=== PATIENT | male | born 1950 | race Caucasian/White ===

== ENCOUNTER → 2019-02-17 | Outpatient (REF) | payer MEDICARE, MEDICAID ==
[~2019-02-17] MED LIST: /LANS30GR; ALPR0.25; AMBI10TA; LIPI80TA; LYRI75CA; SENN15TA2; VENTAER; XANA0.25; ZOLO100T
== END ==
LOC: M LAB LCGH 15:10
PROVIDERS: ATTEND Surgery
DX: R13.10 Dysphagia, unspecified (principal)

== ENCOUNTER → 2022-09-01 | Outpatient (CLI) | payer MEDICARE, MEDICAID ==
[~2022-09-01] MED LIST changes: +ALBU8.5H INH; +ANOR1AER INH; +BUSP10TA79 PO; +DOCU100C16 PO; +FLUTISP; +IBAN150T6 PO; +OLAN1TAB16 PO; +PANT40TA29 PO; +SPIR1CAP INH; +XARE20TA PO; +ZOCO80TA PO
== END ==
LOC: M LABSMTC 10:12
PROVIDERS: ATTEND Anesthesiology
DX: Z01.812 Encounter for preprocedural laboratory examination (principal); Z20.822 Contact with and (suspected) exposure to COVID-19

== ENCOUNTER 2022-09-02 10:22 | Day surgery (SDC) | payer MEDICARE, MEDICAID ==
[~2022-09-02] VITALS: Ht 165.1 cm; Wt 70.8 kg
[~2022-09-02 10:22] MED LIST changes: +CEFUROXIME 1MG/0.1ML INTRACAMERAL INJ As Ordered ONE; +CYCLOPENTOLATE 1% OPHTH SOLN 2ML BTL OS SCH; +LIDOCAINE 1% 1ML PF SYRINGE (OR EYE CASES) As Ordered ONE; +OFLOXACIN 0.3 % (OCUFLOX) OPTH SOL 5ML OS SCH; +PHENYLEPHRINE 2.5% OPHTH SOL 2ML OS SCH; +PROPARACAINE 0.5% OPHTH SOL 15ML OS ONE; +TROPICAMIDE 1% OPHTH SOLN 15ML OS SCH
[2022-09-02] MEDS ORDERED: BSS IRR 500ML/OMIDRIA 4ML IRR BAG (OR ONLY) As Ordered ONE (10:28)
[2022-09-02] MEDS ORDERED: MIDAZOLAM INJ 2MG/2ML VIAL (J2250 PER 1MG) As Ordered ONE (11:53)
[2022-09-02] MEDS ORDERED: fentaNYL 100 MCG/2 ML INJECTION As Ordered ONE (11:53)
[2022-09-02 13:00] VITALS: BP 162/66
== END 2022-09-02 13:02 | disposition home or self-care (01) ==
LOC: M SDC 10:22
PROVIDERS: ATTEND Ophthalmology
DX: H25.12 Age-related nuclear cataract, left eye (principal); K21.9 Gastro-esophageal reflux disease without esophagitis; R51.9 Headache, unspecified; J45.909 Unspecified asthma, uncomplicated; Z79.02 Long term (current) use of antithrombotics/antiplatelets; Z79.899 Other long term (current) drug therapy; Z79.51 Long term (current) use of inhaled steroids; F41.9 Anxiety disorder, unspecified; F32.A Depression, unspecified; Z87.891 Personal history of nicotine dependence; J30.2 Other seasonal allergic rhinitis
CPT/HCPCS: 66984; J0697; J1097; J2250; J3010; V2632

== ENCOUNTER 2023-12-08 08:54 | Day surgery (SDC) | payer MEDICARE, MEDICAID ==
[~2023-12-08] VITALS: Ht 165.1 cm; Wt 67.1 kg
[~2023-12-08 08:54] MED LIST changes: +BUSP10TA PO; -CEFUROXIME 1MG/0.1ML INTRACAMERAL INJ As Ordered ONE; -CYCLOPENTOLATE 1% OPHTH SOLN 2ML BTL OS SCH; -LIDOCAINE 1% 1ML PF SYRINGE (OR EYE CASES) As Ordered ONE; -OFLOXACIN 0.3 % (OCUFLOX) OPTH SOL 5ML OS SCH; -PHENYLEPHRINE 2.5% OPHTH SOL 2ML OS SCH; -PROPARACAINE 0.5% OPHTH SOL 15ML OS ONE; +TAMS1CAP17 PO; -TROPICAMIDE 1% OPHTH SOLN 15ML OS SCH
[2023-12-08] MEDS: ATROPINE SULFATE 1% OPHTH SOLN 2ML BTL OD SCH (10:23)
[2023-12-08] MEDS: PROPARACAINE 0.5% OPHTH SOL 15ML OD ONE (10:23)
[2023-12-08] MEDS: TROPICAMIDE 1% OPHTH SOLN 15ML OD SCH (10:24)
[2023-12-08] MEDS: PHENYLEPHRINE 2.5% OPHTH SOL 2ML OD SCH (10:24)
[2023-12-08] MEDS: OFLOXACIN 0.3 % (OCUFLOX) OPTH SOL 5ML OD SCH (10:24)
[2023-12-08] MEDS ORDERED: fentaNYL 100 MCG/2 ML INJECTION As Ordered ONE (11:28)
[2023-12-08] MEDS ORDERED: MIDAZOLAM INJ 2MG/2ML VIAL As Ordered ONE (11:28)
[2023-12-08] MEDS: LIDOCAINE 1% SDV 5ML VIAL As Ordered ONE (11:33)
[2023-12-08] MEDS: BSS IRR 500ML/OMIDRIA 4ML IRR BAG (OR ONLY) As Ordered ONE (11:34)
[2023-12-08] MEDS: CEFUROXIME 1MG/0.1ML INTRACAMERAL INJ As Ordered ONE (11:34)
[2023-12-08 11:42] VITALS: BP 175/80; TEMP 96.9; O2SAT 94
== END 2023-12-08 12:15 | disposition home or self-care (01) ==
LOC: M SDC 08:54
PROVIDERS: ATTEND Ophthalmology
DX: H25.11 Age-related nuclear cataract, right eye (principal); E78.5 Hyperlipidemia, unspecified; K44.9 Diaphragmatic hernia without obstruction or gangrene; K21.9 Gastro-esophageal reflux disease without esophagitis; Z86.718 Personal history of other venous thrombosis and embolism; Z79.51 Long term (current) use of inhaled steroids; Z79.899 Other long term (current) drug therapy; F41.9 Anxiety disorder, unspecified; F32.A Depression, unspecified; J44.9 Chronic obstructive pulmonary disease, unspecified; N40.0 Benign prostatic hyperplasia without lower urinary tract symptoms
CPT/HCPCS: 66984; J0697; J1097; J2250; J3010; V2632

== ENCOUNTER → 2024-09-20 | Outpatient (CLI) | payer MEDICARE, MEDICAID ==
[~2024-09-20] MED LIST changes: +IBAN150T10 PO; -IBAN150T6 PO
== END ==
LOC: M ONCR 08:24
PROVIDERS: ATTEND General Practice
DX: C61 Malignant neoplasm of prostate (principal); R97.20 Elevated prostate specific antigen [PSA]; R35.1 Nocturia; Z86.718 Personal history of other venous thrombosis and embolism; Z79.01 Long term (current) use of anticoagulants; Z79.51 Long term (current) use of inhaled steroids; Z79.899 Other long term (current) drug therapy

== ENCOUNTER → 2024-10-12 | Outpatient (CLI) | payer MEDICARE, MEDICAID ==
[~2024-10-12] MED LIST changes: +CIPR750T2 PO; +FLEEENE12 PR; +LIDOCAINE 2% MDV 20ML VIAL XX ONE; +LIDOCAINE VISCOUS 2% SOLN 15ML UDC XX ONE; +LORA1TAB23 PO
[2024-10-12] MEDS: LIDOCAINE VISCOUS 2% SOLN 15ML UDC XX ONE (13:05)
[2024-10-12] MEDS: LIDOCAINE 2% MDV 20ML VIAL XX ONE (13:09)
[2024-10-12 13:10] VITALS: BP 154/78; TEMP 98.2; O2SAT 97
[2024-10-12 13:51] VITALS: BP 135/72; TEMP 98.1; O2SAT 98
== END ==
LOC: M ONCR 12:53
PROVIDERS: ATTEND General Practice
DX: C61 Malignant neoplasm of prostate (principal)
CPT/HCPCS: 55874; 55876; A4648; C1889

== ENCOUNTER → 2024-11-03 | Outpatient (CLI) | payer MEDICARE, MEDICAID ==
[~2024-11-03] MED LIST changes: -LIDOCAINE 2% MDV 20ML VIAL XX ONE; -LIDOCAINE VISCOUS 2% SOLN 15ML UDC XX ONE; +LORA-1041; +MIRT-11
== END ==
LOC: M RAD 09:53
PROVIDERS: ATTEND Specialist
DX: C61 Malignant neoplasm of prostate (principal)

== ENCOUNTER → 2024-11-08 | Outpatient (CLI) | payer MEDICARE, MEDICAID | LOC: M ONCM 13:38 | PROVIDERS: ATTEND Dietitian, Registered | DX: C61 Malignant neoplasm of prostate (principal); Z71.3 Dietary counseling and surveillance; Z68.24 Body mass index [BMI] 24.0-24.9, adult ==

== ENCOUNTER → 2024-11-18 | Outpatient (RCR) | payer MEDICARE, MEDICAID | LOC: M ONCR 10-24 07:42 | PROVIDERS: ATTEND General Practice | DX: Z51.0 Encounter for antineoplastic radiation therapy (principal); C61 Malignant neoplasm of prostate ==

== ENCOUNTER → 2024-12-19 | Outpatient (RCR) | payer MEDICAID, MEDICARE ==
[~2024-12-19] MED LIST changes: +MYRB50TA PO
== END ==
LOC: M ONCR 11-21 13:13
PROVIDERS: ATTEND General Practice
DX: Z51.0 Encounter for antineoplastic radiation therapy (principal); C61 Malignant neoplasm of prostate

== ENCOUNTER 2024-12-22 12:52 | Outpatient (RCR) | payer MEDICARE | END 2025-01-18 | LOC: M ONCR 12:52 | PROVIDERS: ATTEND General Practice | DX: Z51.0 Encounter for antineoplastic radiation therapy (principal); C61 Malignant neoplasm of prostate ==

== ENCOUNTER → 2025-03-23 | Outpatient (CLI) | payer MEDICARE | LOC: M ONCR 13:10 | PROVIDERS: ATTEND General Practice | DX: C61 Malignant neoplasm of prostate (principal); Z79.818 Long term (current) use of other agents affecting estrogen receptors and estrogen levels; R35.1 Nocturia; Z87.891 Personal history of nicotine dependence; Z91.09 Other allergy status, other than to drugs and biological substances; Z79.899 Other long term (current) drug therapy; Z79.51 Long term (current) use of inhaled steroids; Z79.01 Long term (current) use of anticoagulants; I49.9 Cardiac arrhythmia, unspecified | CPT/HCPCS: 93005; G0463 ==